=== PATIENT | female | born 1975 | race Caucasian/White ===

== ENCOUNTER 2019-07-20 08:23 | Observation (INO) | payer OTHER ==
--- NOTE | 2019-07-10 14:05 | HP ---
PREOPERATIVE HISTORY AND PHYSICAL: DATE OF ADMISSION/SURGERY: 07/20/19 PHYSICIAN: Dr. Conchis Albright.* (DICTATED BY CHAYA BRUNO) PROCEDURE: Left total knee arthroplasty. HISTORY OF PRESENT ILLNESS: Ms. Hansen is a 43-year-old female with chronic intermittent knee pain over the last 3 years. Her pain over the last 6 months has become extremely severe with 6/10 aching pain along the joint line. She was seen by Dr. Dixon, who ordered an MRI and found extensive avascular necrosis with osteochondral defects. The patient has been on protected weightbearing with crutches and a total knee arthroplasty was recommended. She presents today for a history and physical for surgical intervention. PAST MEDICAL HISTORY: Crohn disease. She denies history of DVT or pulmonary embolism. PAST SURGICAL HISTORY: D and C x2. She denies anesthetic complication with that procedure. CURRENT MEDICATIONS: 1. Stelara 1 injection every 4 weeks. This will be held prior to surgery. 2. Methotrexate 1 injection a week 12.5 mL 3. Lisinopril 20 mg 1 tab p.o. daily. 4. Omeprazole 40 mg 1 tab p.o. daily. 5. Bupropion HCl ER 300 mg 1 tab p.o. daily. 6. Aspirin 81 mg 1 tab by mouth daily. She will hold this 1 week prior to surgery. 7. Budesonide ER 9 mg 1 tab by mouth daily. 8. Pentasa 500 mg 1 capsule twice daily. 9. Metoclopramide HCl 5 mg 1 tab by mouth 3 times daily as needed. 10. Folic acid 1 tab by mouth 6 times a week. 11. Sertraline HCl 200 mg p.o. daily. ALLERGIES: PENICILLIN, CECLOR, and AMOXICILLIN cause hives and swelling. FAMILY HISTORY: No heart disease, diabetes, or cancer. SOCIAL HISTORY: She lives with her , who will care for her postoperatively. She works at [employer] currently. She denies tobacco or recreational drug use and only consumes minimal alcohol. REVIEW OF SYSTEMS: Fourteen systems are reviewed with the patient today and are positive for left knee pain and systems are otherwise negative. PHYSICAL EXAMINATION GENERAL: She is a well-developed, well-nourished female seated on exam chair, in no acute distress with appropriate affect. VITAL SIGNS: Height 68 inches, weight 200 pounds. Pulse 80, blood pressure 130 /78. HEENT: Normocephalic, atraumatic. Hearing and vision are grossly intact with extraocular movements intact. NECK: The trachea is midline and symmetrical. CHEST: Lungs are clear to auscultation. No wheezes, rales, or rhonchi noted. CARDIO: Regular rate and rhythm. Normal S1, S2. No murmurs, rubs, or gallops appreciated. ABDOMEN: Nondistended, nontender. Bowel sounds present. MUSCULOSKELETAL: Of the left lower extremity, skin is dry and intact without abrasions or open wounds. There is a moderate effusion at the knee. She is tender to palpation on the medial and lateral joint lines as well as the femoral condyles. There is no varus or valgus instability. She extends the knee to 5 degrees, flexes to 100 with pain. She has 5/5 strength against resistance in 4 planes with the left ankle with intact sensation and a 2+ dorsalis pedis pulse. IMAGING: MRI from April 2019 shows extensive bony infarct along the distal femur with significant joint effusion, large unstable osteochondral fracture of the lateral femoral condyle with fluid between the fragments and the cortical bone. Plain films show well-maintained joint space and mild degenerative changes in the lateral femoral condyle, osteochondral defect is minimally visible. ASSESSMENT: Left knee pain with bony infarcts and avascular necrosis as well as a large osteochondral defect of the lateral femoral condyle. PLAN: Left total knee arthroplasty with Dr. Albright. The patient's questions were answered and she would like to proceed. Dr. Albright reviewed the potential risks and complications of the procedure today. The patient will follow up postoperatively and pain medications will be dispensed postoperatively. CHAYA BRUNO [id number]/[facility] [place] #: [id number] MARITZA
[~2019-07-20 08:23] MED LIST: Acetaminophen IV 1GM/100ML * 1,000 MG/100 ML VIAL IVPB ONE; Buffered Lidocaine 1% SYRIN* 1 ML/SYRINGE INTRADERM ONE; Gabapentin CAP(*) 300 MG PO ONE; Lactated Ringers 1000 ML Bag* 1,000 ML IV SCH; Tranexamic Acid 1,000 MG in NS 0.9% 50 ML IV ONE; celeCOXIB CAP* 200 MG PO ONE
[2019-07-20] MEDS ORDERED: celeCOXIB CAP* 200 MG ONE (09:01)
[2019-07-20] MEDS ORDERED: Clindamycin 900 MG/D5W BAG(*) 900 MG/50 ML BAG IVPB ONE (09:01)
[2019-07-20] MEDS ORDERED: Acetaminophen IV 1GM/100ML * 100 ML ONE (09:01)
[2019-07-20] MEDS ORDERED: Gabapentin CAP(*) 300 MG ONE (09:01)
[2019-07-20] MEDS ORDERED: Dexamethasone IV* 4 MG/ML 1 ML (4 MG) IV SLOW PU ONE (11:12)
[2019-07-20] MEDS ORDERED: Dexamethasone IV* 4 MG/ML 1 ML (4 MG) ONE (11:12)
[2019-07-20] MEDS ORDERED: Midazolam* 1 MG/ML 5 ML VIAL (5 MG) ONE ×2 (11:14→11:49)
[2019-07-20] MEDS ORDERED: KETAMINE HCL* 50 MG/ML 10 ML VIAL ONE (11:14)
[2019-07-20] MEDS ORDERED: Ondansetron INJ* 2 MG/ML VIAL ONE (11:15)
[2019-07-20] MEDS ORDERED: Propofol* 10 MG/ML 20 ML BTL ONE (11:15)
[2019-07-20] MEDS ORDERED: Bupivacaine 0.5% SDV PF* 30ML VIAL ONE (11:15)
[2019-07-20] MEDS ORDERED: ROPIVACAINE 5 MG/ML 30 ML BTL (0.5%) ONE ×2 (11:16→11:17)
[2019-07-20] MEDS ORDERED: HYDROmorphone INJ1* 1 MG/ML SYRINGE IV PRN (12:19)
[2019-07-20] MEDS ORDERED: fentaNYL* 50 MCG/ML 2 ML VIAL (100 MCG VIAL) IV PRN (12:19)
[2019-07-20] MEDS ORDERED: Ondansetron INJ* 2 MG/ML VIAL IV PRN ×2 (12:19→14:22)
[2019-07-20] MEDS ORDERED: Naloxone* 0.4 MG/ML 1 ML VIAL IV PRN (12:19)
[2019-07-20] MEDS ORDERED: Scopolamine 1.5 mg* PATCH TRANSDERM PRN (12:19)
[2019-07-20] MEDS ORDERED: DiMENhydriNATE IV* 50 MG/ML VIAL IV PUSH PRN (12:19)
[2019-07-20] MEDS ORDERED: diPHENhydraMINE PO* 25 MG PO PRN (14:22)
[2019-07-20] MEDS ORDERED: Acetaminophen TAB* 325 MG PO PRN (14:22)
[2019-07-20] MEDS ORDERED: Magnesium Hydroxide LIQ* 30 ML UDC PO PRN (14:22)
[2019-07-20] MEDS ORDERED: diPHENhydraMINE IV* 50 MG/ML 1 ml VIAL (BENADRYL) IV PRN (14:22)
[2019-07-20] MEDS ORDERED: Ondansetron ODT TAB* 4 MG PO PRN (14:22)
[2019-07-20] MEDS ORDERED: oxyCODONE/Acetamin 5/325 MG* TAB PO PRN (14:22)
[2019-07-20] MEDS ORDERED: LORazepam TAB(*) 0.5 MG PO PRN (14:26)
[2019-07-20] MEDS ORDERED: Metoclopramide TAB* 10 MG PO PRN (14:26)
[2019-07-20] MEDS: Cyclobenzaprine TAB* 10 MG PO PRN (16:59)
--- NOTE | 2019-07-20 17:11 | PN ---
Progress Note - Progress Note Date of Service: 07/20/19 - Post-op Note: Post-op check s/p Left TKA: Patient resting comfortably in bed. She denies CP or SOB. Her pain is well managed. She has not been OOB with PT yet. She actively DP/PF with intact sensation and 2+ DP pulse. Continue pain management and PT. We will monitor.
[2019-07-20] MEDS: oxyCODONE/Acetamin 5/325 MG* TAB PO PRN ×2 (17:43→22:01)
[2019-07-20] MEDS: Lactated Ringers 1000 ML Bag* 1,000 ML IV SCH (17:46)
--- NOTE | 2019-07-20 18:00 | OP ---
Operative Report - Blank - Operative Report Date of Operation: 07/20/19 Note: SHASHI REESE 1975 Date of Surgery: 07/20/19 Conchis Albright MD Foreign Law Consultant: Tye LARKIN did help throughout the procedure with preparation of the knee, wound retraction, manipulation of the knee, and wound closure. Anesthesiologist: Tye Bucio MD Anesthesia Type: Spinal Preoperative Diagnosis: Left severe avascular necrosis of the femur with secondary arthritis of the knee Postoperative Diagnosis: As above Procedure Performed: Left Total Knee Arthroplasty Tourniquet time: 40 minutes Complications: None Specimen: Bone and cartilage from the left knee joint sent to pathology. Hardware Used: Cemented Vera and Nephew total knee hardware was used - For the femur a size 5 left narrow oxinium legion posterior stabilized femoral component , for the tibia a size 3 left kady II tibial baseplate, for the insert a size 3-4 11mm posterior stabilized articular polyethylene insert, and for the patella a size 32 3-peg all poly patella. Brief History/Indication: SHASHI REESE was known in clinic and had a history of severe left knee pain and swelling. She has a history of chronic steroid use because of inflammatory comorbidities. She failed conservative treatment with anti-inflammatories, pain pills, intra-articular injections and physical therapy. She elected to undergo left total knee arthroplasty due to continued pain and decreased quality of life. Radiographs showed severe avascular necrosis and resulting osteoarthritis of the knee. Informed consent was obtained from the patient. She understood the risks of surgery included but were not limited to: bleeding, infection, damage to nearby structures, intraoperative fracture, nerve palsy, failure of the hardware, early loosening, knee stiffness or loss of motion, anesthesia complications, stroke, heart attack , blood clot and . She understood there was an increased risk of early implant loosening due to her young age and avascular necrosis. She wished to proceed. Intra-Operative Findings: Intraoperatively the patient was noted to have severe loss of cartilage in the lateral and patellofemoral compartment of the knee. The distal lateral femoral condyle was deformed with the majority of the weightbearing surface loose as a cartilage flap. Description of the Procedure: SHASHI REESE was identified in the preanesthesia unit. Her left knee was marked as the correct operative side. Informed consent was signed and placed in the chart. The patient was taken to the operating room and placed under anesthesia without complication. A pinto catheter was placed. A tourniquet was placed on the left thigh. The left lower extremity was prepped and draped in the usual sterile fashion. Preoperative time-out was made to correctly identify the patient, side and site. Appropriate intraoperative antibiotics were given within one hour of incision. Tourniquet was inflated. A midline incision was made and carried sharply down to the extensor mechanism. A new 10 blade was used to make a standard medial parapatellar arthrotomy. The patella was subluxed laterally. Electrocautery was used to dissect soft tissue off the superomedial tibia to the midsagittal plane. The knee was flexed up. The anterior horn of the lateral meniscus and the ACL were sharply incised. A large free cartilage piece was removed from the lateral femoral condyle. This area of the weightbearing surface had severe deformity from avascular necrosis. A drill was used to enter the distal femur. The intramedullary distal femoral cutting guide was pinned on the distal femur. The oscillating saw was used to make the distal femoral cut. The external rotation guide was pinned on the distal femur and the distal femur was sized to a size 5. The size 5 multi-cutting jig was pinned on the distal femur. The oscillating saw was used to make the appropriate 4 chamfer cuts. Next the PCL was completely released. The extramedullary tibial cutting guide was pinned on the proximal tibia and the oscillating saw was used to make the proximal tibial cut perpendicular to the mechanical axis of the tibia. The bone was carefully removed. The knee was brought out into full extension. The spacer block was placed and had excellent fit with the knee in full extension. The medial and lateral ligaments were well balanced. The flexion and extension gaps were well balanced. The knee was flexed up. [employer] principal was placed both medially and laterally. Any remaining meniscus was removed with electrocautery. Curved osteotome was used to remove any posterior osteophytes. The tibial tray and drop ale were placed and confirmed a satisfactory tibial cut. The size 5 left narrow femoral trial was impacted onto the distal femur. This trial had excellent fit and stability. The box for the posterior stabilized implant was prepared using a box cut osteotome and a reamer. Next a tibial tray trial and 9 mm insert trial was placed. The knee was taken through a range of motion and had full extension to 130 degrees of flexion. Patellofemoral tracking was satisfactory. The patella was inverted and sized to a size 32. Three peg holes were drilled through the size 32 drill guide. The trial patella was placed and the knee was taken through a range of motion. There was satisfactory patellofemoral tracking. All trials were removed. The tibia was subluxed anteriorly and sized to a size 3. The proximal tibial was prepared with a size 3 keel punch. All bony cut surfaces were irrigated with sterile saline and dried. Final implants were cemented into place starting with the tibia, followed by the femur, and last the patella. A 9 mm insert trial was placed and the knee was brought into full extension. Tourniquet was turned down and the knee was copiously irrigated with sterile saline. Electrocautery was used to obtain meticulous hemostasis. Once the cement had fully cured, the insert trial was removed. Any excess cement was removed from around the hardware and capsule. Final insert chosen was a 11 mm posterior stabilized Kady II articular insert size 3-4. Stability of the insert was checked and noted to be stable. The extensor mechanism was closed using number 1 vicryls. The rest of the incision was closed in a layered fashion using 0 and 2-0 vicryls. The skin was closed using 3-0 nylon suture. Sterile xeroform, 4x4s and webril were used to cover the incision. Luis wrap and cold pack were used to cover the dressings. The patients anesthesia was reversed without difficulty. She was taken to the PACU in stable condition. Intended weight-bearing will be as tolerated.
[2019-07-20] MEDS: oxyCODONE TAB* 5 MG TAB PO PRN (19:21)
[2019-07-20] MEDS ORDERED: Clindamycin 600 MG IVPREMIX(* 600 MG/50 ML SDV IV SCH (20:00)
[2019-07-20] MEDS: Clindamycin 600 MG/D5W BAG(*) 600 MG/50 ML BAG IV SCH (20:22)
[2019-07-20] MEDS: HYDROCORTISONE ENEMA PR SCH (21:53)
[2019-07-20] MEDS: Docusate CAP* 100 MG PO SCH (21:53)
[2019-07-20] MEDS: Magnesium Hydroxide LIQ* 30 ML UDC PO SCH (21:54)
[2019-07-20] MEDS: Sertraline* 100 MG TAB PO SCH (22:35)
[2019-07-21] MEDS: oxyCODONE TAB* 5 MG TAB PO PRN ×5 (00:08→22:00)
[2019-07-21] MEDS: Cyclobenzaprine TAB* 10 MG PO PRN ×3 (00:09→16:58)
[2019-07-21] MEDS: Morphine INJ* 2 MG/ML 1 ML SYRINGE (TWO MG - NEW SYRINGE VERSION) IV PRN ×4 (00:11→17:06)
[2019-07-21] MEDS: oxyCODONE/Acetamin 5/325 MG* TAB PO PRN ×5 (03:16→23:50)
[2019-07-21] MEDS: Lactated Ringers 1000 ML Bag* 1,000 ML IV SCH (03:18)
[2019-07-21] MEDS: Clindamycin 600 MG/D5W BAG(*) 600 MG/50 ML BAG IV SCH ×2 (04:30→12:32)
[2019-07-21 06:06] LABS: Hematocrit 29 % (35-47); Hemoglobin 10.1 g/dL (12.0-16.0); Mean Platelet Volume 8.1 fL (7.4-10.4); Platelet Count 198 10^3/uL (150-450)
[2019-07-21 06:23] LABS: Calcium 8.4 mg/dL (8.6-10.3); EGFR African American 113.4 (>60); EGFR Non-African American 93.8 (>60)
[2019-07-21] MEDS: Vitamin THERAPEUTIC TAB PO SCH (08:52)
[2019-07-21] MEDS: BuPROPion XL* 300 MG TAB.XL PO SCH (08:52)
[2019-07-21] MEDS: Docusate CAP* 100 MG PO SCH ×2 (08:52→19:36)
[2019-07-21] MEDS: Pantoprazole TAB * 40 MG TAB PO SCH (08:52)
[2019-07-21] MEDS: Apixaban* 2.5 MG TAB PO SCH ×2 (08:52→19:37)
[2019-07-21] MEDS: Lisinopril TAB* 10 MG PO SCH (08:52)
[2019-07-21] MEDS: Magnesium Hydroxide LIQ* 30 ML UDC PO SCH ×2 (09:29→19:38)
[2019-07-21] MEDS: Morphine TAB Extended Release (*) 15 MG TAB.ER PO SCH ×2 (10:00→22:00)
--- NOTE | 2019-07-21 11:14 | DS ---
Orthopedic Discharge Summary - Discharge Summary Date of Admission:07/20/19 Date of Discharge: 07/21/19 Date of Surgery: 07/20/19 Attending Orthopedic Provider: Dr. Albright Pre-operative Diagnosis: Left knee osteoarthritis Operative Procedure: Left total knee arthroplasty Disposition of Patient: Home Condition of Patient: Stable History: SHASHI REESE is a 43 year old F with years of increasingly severe left pain. Patient has failed conservative management and has elected to undergo a Left total knee arthroplasty. Hospital Course: SHASHI was admitted to [facility] on 07/20/19. Patient underwent a Left total knee arthroplasty without complication followed by a brief recovery in PACU and transfer to the Short Stay Surgical Unit in stable condition. Physical therapy and occupational therapy also participated in this patient's care. Post-op day 1: patient was alert and in no acute distress. Dressing was clean, dry and intact. Dressing was changed and incision with well approximated with intact sutures without signs of infection. Operative extremity dorsiflexion and plantarflexion intact, sensation intact to light touch distally, DP2+. Patient was deemed to be medically and orthopedically stable for discharge. Physical therapy goals were met. Home Medications Medication Instructions Recorded Confirmed Type Aspirin [Aspir-Low] 81 mg PO QAM 07/07/19 07/20/19 History BuPROPion XL* [Bupropion XL*] 300 mg PO QAM 07/07/19 07/20/19 History Budesonide CAP(NF) 9 mg PO QAM 07/07/19 07/20/19 History Folic Acid TAB* [Folvite TAB*] 1 mg PO .6TIMES A WEEK 07/07/19 07/20/19 History Hydrocortisone ENEMA* [Cortenema*] 100 mg OK BEDTIME 07/07/19 07/20/19 History LORazepam [Lorazepam] 0.5 mg PO Q6H PRN 07/07/19 07/20/19 History Lisinopril 20 mg PO QAM 07/07/19 07/20/19 History Mesalamine CAP(NF) [Pentasa(NF)] 500 mg PO BID 07/07/19 07/20/19 History Methotrexate Sodium/Pf 12.5 mg IJ WEEKLY 07/07/19 07/20/19 History [Methotrexate 25 mg/ml Vial] Metoclopramide HCl 5 mg PO TID AC PRN 07/07/19 07/20/19 History Multivitamin [Once Daily] 1 each PO BEDTIME 07/07/19 07/20/19 History Omeprazole 40 mg PO QAM 07/07/19 07/20/19 History Ondansetron TAB* [Zofran 4 MG Tab*] 4 mg PO Q6H PRN 07/07/19 07/20/19 History Sertraline HCl [Zoloft] 200 mg PO BEDTIME 07/07/19 07/20/19 History Ustekinumab [Stelara] 90 mg SQ .[id number] 07/07/19 07/20/19 History Discharge Instructions following Orthopedic Surgery: Activity: * Weight Bearing as tolerated * Continue physical therapy and occupational therapy exercises as shown Wound care: * OK to shower on post-op day 3, no bathing, swimming, or submerging wound. * Use gentle soap, pat dry. Cover with gauze, WILBERTO wrap or tape. * Visiting home nurse to do wound checks. Call Orthopedic office for: * Increased drainage * Redness * Increased pain * Fever Go to ER with shortness of breath or chest pain. Diet: * Regular diet * Increase fluids and fiber to prevent constipation. * Continue to use stool softeners, call office if no bowel motion within 48 hours. Medications See Home Medication List in your packet for medications that you should take after discharge. Prescription medication sent to [facility] pharmacy at patient's request. ( Percocet, Oxycontin, Colace, Eliquis) DVT Prophylaxis: Eliquis Dosin.5 mg, 1 tab every 12 hours x 30 days Pain Control: Percocet Dosin/325 mg 1-2 tabs by mouth every 4-6 hours as needed for pain. Maximum of 10 tabs per day. Oxycontin 15 mg 1 tab by mouth every 12 hours Please note that Percocet contains Tylenol (acetaminophen). Maximum daily dose of Tylenol is 4000 mg from all sources. Antibiotics are required prior to any dental work. FOLLOW UP: Follow up with Dr. Albright Within 10-14 days, call for appointment at [phone]. Please call our office with any questions or concerns ([phone])
[2019-07-21] MEDS ORDERED: Morphine INJ* 4 MG/ML 1 ML SYRINGE (NEW SYRINGE VERSION) IV PRN (11:50)
--- NOTE | 2019-07-21 11:50 | PN ---
Progress Note - Progress Note Date of Service: 07/21/19 Note: Patient has developed uncontrolled pain with long and short acting medication after minimal movement. She is quite emotional because she really wants to go home, but her pain is not under control and she is unable to remotely move the leg or knee. Although she wanted discharge today and was pain free when not moving, she needs better control of her pain before she should go. She is diaphoretic, hypertensive and tachycardic at this time. I will increase her IV morphine dose to see if this will control pain so that oral medication will be more effective. We will reassess tomorrow.
[2019-07-21] MEDS ORDERED: Morphine INJ* 4 MG/ML 1 ML SYRINGE (NEW SYRINGE VERSION) ONE (11:57)
[2019-07-21] MEDS: Sertraline* 100 MG TAB PO SCH (19:36)
[2019-07-21] MEDS: HYDROCORTISONE ENEMA PR SCH (19:37)
[2019-07-22] MEDS: oxyCODONE TAB* 5 MG TAB PO PRN ×2 (03:29→10:00)
[2019-07-22] MEDS: Cyclobenzaprine TAB* 10 MG PO PRN (03:30)
[2019-07-22 05:53] LABS: Hematocrit 33 % (35-47); Hemoglobin 11.2 g/dL (12.0-16.0); Mean Platelet Volume 8.3 fL (7.4-10.4); Platelet Count 254 10^3/uL (150-450)
[2019-07-22] MEDS: oxyCODONE/Acetamin 5/325 MG* TAB PO PRN ×2 (07:14→12:06)
[2019-07-22] MEDS: Pantoprazole TAB * 40 MG TAB PO SCH (08:36)
[2019-07-22] MEDS: BuPROPion XL* 300 MG TAB.XL PO SCH (08:36)
[2019-07-22] MEDS: Lisinopril TAB* 10 MG PO SCH (08:36)
[2019-07-22] MEDS: Apixaban* 2.5 MG TAB PO SCH (08:36)
[2019-07-22] MEDS: Vitamin THERAPEUTIC TAB PO SCH (08:36)
[2019-07-22] MEDS: Magnesium Hydroxide LIQ* 30 ML UDC PO SCH (08:39)
[2019-07-22] MEDS: Docusate CAP* 100 MG PO SCH (08:39)
[2019-07-22] MEDS: Morphine TAB Extended Release (*) 15 MG TAB.ER PO SCH (09:58)
--- NOTE | 2019-07-22 11:09 | PN ---
Progress Note - Progress Note Date of Service: 07/22/19 SOAP: Subjective: [Pt feeling better today. Would like to go home. Pain controlled with po meds. Denies CP, SOB, Dizziness. Has had BM.] Objective: [A and O x 3, NAD L knee dressing changed, surgical wound benign Gross motor, NV function intact. Calves soft, NT. Vital Signs: Temp Pulse Resp BP Pulse Ox 98.2 F 116 18 122/72 97 07/22/19 08:43 07/22/19 08:43 07/22/19 10:00 07/22/19 08:43 07/22/19 08:43 Laboratory Results - last 24 hr 07/22/19 05:06 Hgb 11.2 L Hct 33 L Plt Count 254 MPV 8.3 ] Assessment: [s/p L TKA POD #3] Plan: [D/C patient home with services Percocet and MS Contin for pain control Eliquis for DVT prophylaxis F/U with Dr. Albright 2 weeks]
[2019-07-22 11:55] VITALS: BP 129/79
[2019-07-22] MEDS ORDERED: Bisacodyl SUPP* 10 MG SUPP PR PRN (14:22)
== END 2019-07-22 12:15 | disposition home or self-care (01) ==
LOC: OR 08:23 → EDSTATUS 13:30 → INTOOBSV 14:22 → SSU 14:22 → OBSVTOIN 14:22
PROVIDERS: ADMIT Orthopaedic Surgery Adult Reconstructive Orthopaedic Surgery; ATTEND Orthopaedic Surgery Adult Reconstructive Orthopaedic Surgery
DX: M17.12 Unilateral primary osteoarthritis, left knee (principal); K50.90 Crohn's disease, unspecified, without complications; Z79.82 Long term (current) use of aspirin; Z79.899 Other long term (current) drug therapy; Z88.0 Allergy status to penicillin
CPT/HCPCS: 36415; 80048; 81025; 85014; 85018; 85049; 88305; 88311; 96365; 96375; 96376; A9270-GY; C1776; G0378; J1100; J2250; J2270; J2405; J2704; J2795; J3490